=== PATIENT | female | born 1985 | race American Indian/Alaskan Native ===

== ENCOUNTER 2018-04-01 12:43 | Emergency (ER) | payer MEDICAID ==
[2018-04-01 12:56] VITALS: BP 122/80
[2018-04-01] MEDS ORDERED: TORADOL IM ONE (13:31)
--- NOTE | 2018-04-01 13:35 | Emergency Department Report ---
ED Lower Extremity HPI - General Chief Complaint: Extremity Injury, Lower Stated Complaint: RT FOOT AND LEG PAIN/LFT FT KNOT Time Seen by Provider: 04/01/18 13:10 Source: patient Mode of arrival: Ambulatory Limitations: No Limitations - History of Present Illness Initial Comments: Ms. Huffman is a 32 yo female who presents with severe right lower leg and foot pain for 2-3 days. No injury. Worse in the morning. Hurts to ambulate. Walking with limp. No fever or redness. No swelling. Right calf pain radiating to top of right foot. Has started new [employer] job 4 months ago. Stands during entire shift at work. Wears basketball shoes at work. Has had knot of left foot for possibly a year. Wants knot to be examined. Complaint: leg injury -: Gradual, days(s) (3) Injury: Leg: Right, Foot: Right Severity: moderate Improves With: nothing Worsens With: weight bearing, movement Associated Symptoms: able to partially bear weight - Related Data Previous Rx's Medication Instructions Recorded Last Taken Type Omeprazole [PriLOSEC] 20 mg PO QDAY #30 capsule.dr 11/30/12 Unknown Rx Ciprofloxacin HCl [Cipro] 500 mg PO Q12H #14 tab 01/02/13 Unknown Rx Ferrous Gluconate [Fergon] 325 mg PO QDAY #30 tablet 01/02/13 Unknown Rx Cyclobenzaprine [Flexeril] 10 mg PO TID PRN #20 tablet 04/01/18 Unknown Rx Naproxen 500 mg PO BID 7 Days #14 tablet 04/01/18 Unknown Rx Allergies Allergy/AdvReac Type Severity Reaction Status Date / Time amoxicillin Allergy Rash Verified 04/01/18 12:52 Penicillins Allergy Rash Verified 04/01/18 12:52 colored dyes on iron pills Allergy Rash Uncoded 04/01/18 12:52 ED Review of Systems ROS: Stated complaint: RT FOOT AND LEG PAIN/LFT FT KNOT Other details as noted in HPI Constitutional: denies: fever, malaise Respiratory: denies: shortness of breath Cardiovascular: denies: chest pain Musculoskeletal: denies: back pain, joint swelling Neurological: denies: headache, weakness ED Past Medical Hx - Past Medical History Previous Medical History?: No - Surgical History Past Surgical History?: Yes Additional Surgical History: 2012. leep procedure - Social History Smoking Status: Never Smoker Substance Use Type: Alcohol - Medications Home Medications: Home Medications Medication Instructions Recorded Confirmed Last Taken Type Omeprazole [PriLOSEC] 20 mg PO QDAY #30 capsule. 11/30/12 Unknown Rx Ciprofloxacin HCl [Cipro] 500 mg PO Q12H #14 tab 01/02/13 Unknown Rx Ferrous Gluconate [Fergon] 325 mg PO QDAY #30 tablet 01/02/13 Unknown Rx Cyclobenzaprine [Flexeril] 10 mg PO TID PRN #20 tablet 04/01/18 Unknown Rx Naproxen 500 mg PO BID 7 Days #14 tablet 04/01/18 Unknown Rx ED Physical Exam - General Limitations: No Limitations General appearance: alert, in no apparent distress - Head Head exam: Present: atraumatic, normocephalic - Extremities Exam Extremities exam: Present: normal inspection, full ROM, normal capillary refill, calf tenderness, other (warm skin, good color left cyst anterior ankle left lower extremity). Absent: tenderness, pedal edema, joint swelling - Neurological Exam Neurological exam: Present: alert, oriented X3 - Psychiatric Psychiatric exam: Present: normal affect, normal mood - Skin Skin exam: Present: warm, dry, intact, normal color ED Course Vital Signs 04/01/18 12:52 Temperature 98.8 F Pulse Rate 89 Respiratory 18 Rate Blood Pressure 122/80 O2 Sat by Pulse 100 Oximetry ED Lower Extremity MDM - Medical Decision Making Ms. Huffman presents with right calf/foot calf strain. No clinical evidence of DVT. Ultrasound Duplex negative for DVT left foot cyst referred to drum carrier rx:naproxen flexeril Critical care attestation.: If time is entered above; I have spent that time in minutes in the direct care of this critically ill patient, excluding procedure time. ED Disposition Clinical Impression: Sprain of right lower leg Disposition: DC-01 TO HOME OR SELFCARE Is pt being admited?: No Does the pt Need Aspirin: No Condition: Stable Instructions: Leg Sprain (ED) Prescriptions: Cyclobenzaprine [Flexeril] 10 mg PO TID PRN #20 tablet PRN Reason: Muscle Spasm Naproxen 500 mg PO BID 7 Days #14 tablet
--- NOTE | 2018-04-01 17:31 | Vascular Lab Report ---
FINAL REPORT EXAM: VL VENOUS DUPLEX LE RT HISTORY: right leg pain right groin pain TECHNIQUE: Longitudinal and transverse grayscale, color, and Doppler sonographic images were perfor med of the right lower extremity from the groin to the infrapopliteal region Comparison: None FINDINGS: The venous system is anechoic and fully compressible at all levels. Normal respiratory variability and augmentation. No popliteal cyst. The greater saphenous vein is within normal limits. The saphenofemoral junction is within normal limi ts. IMPRESSION: No evidence for acute deep venous thrombosis or superficial thrombophlebitis of the right lower extre mity from the groin to the infrapopliteal region.
== END 2018-04-01 15:21 | disposition home or self-care (01) ==
LOC: ED 12:43
DX: S93.601A Unspecified sprain of right foot, initial encounter (principal); Z88.1 Allergy status to other antibiotic agents; Z88.0 Allergy status to penicillin; Z91.048 Other nonmedicinal substance allergy status; X50.1XXA Overexertion from prolonged static or awkward postures, initial encounter; Y93.89 Activity, other specified; Y92.89 Other specified places as the place of occurrence of the external cause; Y99.8 Other external cause status
CPT/HCPCS: 93971; 96372; 99283; J1885